=== PATIENT | female | born 1945 | race Caucasian/White ===

== ENCOUNTER 2018-12-09 10:58 | Observation (INO) | payer OTHER ==
[2018-12-09] MEDS ORDERED: NS 1,000 ML IV ONE (11:00)
[2018-12-09 11:39] LABS: PLATELET COUNT 274 10^3/uL (150-400)
[2018-12-09] MEDS ORDERED: DEXAMETHASONE 4 MG/ML VIAL ONE (11:46)
[2018-12-09] MEDS ORDERED: PROPOFOL 200 MG/20 ML VIAL ONE (11:46)
[2018-12-09] MEDS ORDERED: ROCURONIUM 50 MG/5 ML VIAL ONE ×2 (11:46→14:25)
[2018-12-09] MEDS ORDERED: LIDOCAINE 1% 300 MG/30 ML SDV ONE (11:49)
[2018-12-09] MEDS ORDERED: HEPARIN/DEXTROSE 25,000 UNIT/500 ML BAG ONE (11:49)
[2018-12-09] MEDS ORDERED: HEPARIN 10,000 UNIT/10 ML MDV (1,000 UNIT/ML) ONE (11:50)
[2018-12-09] MEDS ORDERED: IOPAMIDOL (ISOVUE-300) 100 ML BTL ONE (11:50)
[2018-12-09] MEDS ORDERED: BUPIVACAINE 0.5% 30 ML SDV ONE (11:50)
[2018-12-09 11:51] LABS: INR 3.46 (0.83-1.16)
--- NOTE | 2018-12-09 12:02 | PDANEPAE ---
ANE History of Present Illness EP studies and ablation. ANE Past Medical History - Cardiovascular History Hx Hypertension: Yes Hx Arrhythmias: Yes Hx Coronary Artery / Peripheral Vascular Disease: Yes Hx CHF / Valvular Disease: Yes Hx Palpitations: Yes Cardiovascular History Comment: HPL, hx of mitral stenosis s/p MVR,. Atrial fibrillation,flutter. chronic bilateral LE edema - Pulmonary History Hx COPD: No Hx Asthma/Reactive Airway Disease: Yes Hx Recent Upper Respiratory Infection: No Hx Oxygen in Use at Home: No Hx Sleep Apnea: No - Neurologic History Hx Cerebrovascular Accident: Yes Hx Seizures: No Hx Dementia: No Neurologic History Comment: Hx of TIA in late - Endocrine History Hx Diabetes: No Hypothyroid: Yes Hyperthyroid: No Obesity: mild - Renal History Hx Renal Disorders: No - Liver History Hx Hepatic Disorders: No - Neurological & Psychiatric Hx Hx Neurological and Psychiatric Disorders: No - Cancer History Hx Cancer: No - Congenital Disorder History Hx Congenital Disorders: No - GI History GERD: no Hx Gastrointestinal Disorders: No - Chronic Pain History Chronic Pain: No - Surgical History Prior Surgeries: s/p MVR, ablation, appendectomy, NURIA, shoulder, knee, hernia repair. cataracts, vitrectomy, bunionectomy ANE Review of Systems Review of Systems: - Exercise capacity METS (RN): 4 METS ANE Patient History - Allergies Allergies/Adverse Reactions: ciprofloxacin [From Cipro] Allergy (Verified 12/04/18 14:19) Headache fenofibrate [From Tricor] Allergy (Verified 12/04/18 14:21) Psychtropic effect fentanyl Allergy (Verified 12/04/18 14:19) Other-Enter Comments hydromorphone [From Dilaudid] Allergy (Verified 12/04/18 14:19) Other-Enter Comments meperidine [From Demerol] Allergy (Verified 12/04/18 14:21) Psychotropic effect oxaprozin [From Daypro] Allergy (Verified 12/04/18 14:19) Headache/Itch tolmetin [From Tolectin] Allergy (Verified 12/04/18 14:19) Headache/Itch - Home Medications Home Medications: Albuterol [Proventil Inhaler HFA (*)] 1 - 2 puffs IH Q4H PRN 12/04/18 [Last Taken Unknown] Aspirin [Aspirin 81mg (*)] 81 mg PO DAILY 12/04/18 [Last Taken 12/08/18] Cholecalciferol Vit D3 [Vitamin D3 (*)] 1,000 units PO DAILY 12/04/18 [Last Taken 12/08/18] Dofetilide [Tikosyn 0.5 MG (*)] 0.5 mg PO BID@00,12 12/04/18 [Last Taken ] Ergocalciferol [Vitamin D2 (*)] 50,000 unit PO WE 12/04/18 [Last Taken 12/08/18] Estradiol [Estrace Vaginal (*)] 1 bertha VG HS 12/04/18 [Last Taken 12/08/18] Furosemide [Lasix 20 MG (*)] 20 mg PO DAILY 12/04/18 [Last Taken 12/08/18] Herbals/Supplements -Info Only 1 ea PO DAILY 12/04/18 [Last Taken 12/08/18] Levothyroxine [Synthroid 75 mcg (*)] 75 mcg PO DAILY06 12/04/18 [Last Taken ] Metoprolol Succinate Xr [Toprol Xl 25 mg (*)] 25 mg PO DAILY 12/04/18 [Last Taken 12/08/18] Beaver-3 Fatty Acids [Fish Oil 1000 mg (*)] 1,000 mg PO HS 12/04/18 [Last Taken 12/08/18] Propylene Glycol/Peg 400/Pf [Systane 0.3-0.4% Eye Drops] 1 each OP Q4-6PRN PRN 12/04/18 [Last Taken 12/08/18] Somatropin [Genotropin] 0.4 mg SQ HS 12/04/18 [Last Taken 12/08/18] Sumatriptan Succinate [Imitrex] 100 mg PO DAILY PRN 12/04/18 [Last Taken Unknown ] Warfarin Sodium [Coumadin 7.5MG (*)] 7.5 mg PO HS 12/04/18 [Last Taken 12/08/18] - Anes Hx Anes Hx: no prior problems - Smoking Hx Smoking Status: Former smoker - Alcohol Use Alcohol Use: Rarely - Family Anes Hx Family Anes Hx: none ANE Labs/Vital Signs - Labs Result Diagrams: 12/09/18 11:20 12/09/18 11:20 - Vital Signs Blood Pressure: 132/65 Heart Rate: 64 O2 Sat (%): 96 Height: 162.56 cm Weight: 74.389 kg ANE Physical Exam - Airway Neck exam: FROM Mallampati Score: Class 1 Mouth exam: normal dental/mouth exam (front upper and lower crowns) - Pulmonary Pulmonary: clear to auscultation - Cardiovascular Cardiovascular: regular rate and rhythym - ASA Status ASA Status: II ANE Anesthesia Plan Anesthesia Plan: general endotracheal anesthesia
[2018-12-09] MEDS ORDERED: ALBUTEROL 3 ML DEYVIAL IH ONE (12:18)
[2018-12-09] MEDS ORDERED: ALBUTEROL 3 ML DEYVIAL ONE (12:21)
--- NOTE | 2018-12-09 12:22 | PDGENHP ---
History & Physical Chief Complaint: symptomatic atrial fibrillation History of Present Illness: Symptomatic AF, refractory to tikosyn. History of mechanical MVR, on coumadin. Prior CTI ablation. Relevant Physical Exam: A+Ox4, RR/NR, crisp mechanical click, no focal deficits Cardiorespiratory Assessment: AF -> GETA/JUAN ALBERTO/EPS/ablation
[2018-12-09] MEDS ORDERED: MIDAZOLAM 2 MG/2 ML VIAL ONE (12:36)
--- NOTE | 2018-12-09 12:36 | PDANEPAE ---
ANE Past Medical History - Pulmonary History Hx Sleep Apnea: No ANE Review of Systems Review of Systems: ANE Patient History - Allergies Allergies/Adverse Reactions: ciprofloxacin [From Cipro] Allergy (Verified 12/04/18 14:19) Headache fenofibrate [From Tricor] Allergy (Verified 12/04/18 14:21) Psychtropic effect fentanyl Allergy (Verified 12/04/18 14:19) Other-Enter Comments hydromorphone [From Dilaudid] Allergy (Verified 12/04/18 14:19) Other-Enter Comments meperidine [From Demerol] Allergy (Verified 12/04/18 14:21) Psychotropic effect oxaprozin [From Daypro] Allergy (Verified 12/04/18 14:19) Headache/Itch tolmetin [From Tolectin] Allergy (Verified 12/04/18 14:19) Headache/Itch - Home Medications Home Medications: Albuterol [Proventil Inhaler HFA (*)] 1 - 2 puffs IH Q4H PRN 12/04/18 [Last Taken Unknown] Aspirin [Aspirin 81mg (*)] 81 mg PO DAILY 12/04/18 [Last Taken 12/08/18] Cholecalciferol Vit D3 [Vitamin D3 (*)] 1,000 units PO DAILY 12/04/18 [Last Taken 12/08/18] Dofetilide [Tikosyn 0.5 MG (*)] 0.5 mg PO BID@00,12 12/04/18 [Last Taken ] Ergocalciferol [Vitamin D2 (*)] 50,000 unit PO WE 12/04/18 [Last Taken 12/08/18] Estradiol [Estrace Vaginal (*)] 1 bertha VG HS 12/04/18 [Last Taken 12/08/18] Furosemide [Lasix 20 MG (*)] 20 mg PO DAILY 12/04/18 [Last Taken 12/08/18] Herbals/Supplements -Info Only 1 ea PO DAILY 12/04/18 [Last Taken 12/08/18] Levothyroxine [Synthroid 75 mcg (*)] 75 mcg PO DAILY06 12/04/18 [Last Taken ] Metoprolol Succinate Xr [Toprol Xl 25 mg (*)] 25 mg PO DAILY 12/04/18 [Last Taken 12/08/18] Kindred-3 Fatty Acids [Fish Oil 1000 mg (*)] 1,000 mg PO HS 12/04/18 [Last Taken 12/08/18] Propylene Glycol/Peg 400/Pf [Systane 0.3-0.4% Eye Drops] 1 each OP Q4-6PRN PRN 12/04/18 [Last Taken 12/08/18] Somatropin [Genotropin] 0.4 mg SQ HS 12/04/18 [Last Taken 12/08/18] Sumatriptan Succinate [Imitrex] 100 mg PO DAILY PRN 12/04/18 [Last Taken Unknown ] Warfarin Sodium [Coumadin 7.5MG (*)] 7.5 mg PO HS 12/04/18 [Last Taken 12/08/18] - Smoking Hx Smoking Status: Former smoker ANE Labs/Vital Signs - Labs Result Diagrams: 12/09/18 11:20 12/09/18 11:20 - Vital Signs Height: 162.56 cm Weight: 74.389 kg
[2018-12-09] MEDS ORDERED: PHENYLEPHRINE HCL 100 MCG/ML SYR ONE ×2 (12:57→15:36)
[2018-12-09] MEDS ORDERED: ceFAZolin 1 GM VIAL ONE ×2 (12:59)
[2018-12-09] MEDS ORDERED: PROTAMINE SULFATE 50 MG/5 ML VIAL IVP ONE (14:03)
[2018-12-09] MEDS ORDERED: ADENOSINE 6 MG/2 ML VIAL ONE (15:12)
[2018-12-09] MEDS ORDERED: SUGAMMADEX SODIUM 200 MG/2 ML VIAL IVP ONE (15:44)
[2018-12-09] MEDS ORDERED: ACETAMINOPHEN 325 MG TAB PO PRN (16:11)
[2018-12-09] MEDS ORDERED: NALOXONE HCL 0.4 MG/ML INJ IVP PRN (16:12)
[2018-12-09] MEDS ORDERED: ALBUTEROL 60 PUFFS/8 GM MDI IH PRN (16:13)
--- NOTE | 2018-12-09 16:13 | POSTANESTH ---
Post Anesthetic Evaluation Cardiovascular Status: Similar to Pre-Op Cond Respiratory Status: Similar to Pre-op Cond. Level of Consciousness/Mental Status: Can Participate in Eval Pain Control: Adequate, Prn Tx Ordered Nausea/Vomiting Control: Adequate, Prn Tx Ordered Complications Possibly Related to Anesthesia: None Noted
--- NOTE | 2018-12-09 16:24 | EPPROC ---
Electrophysiology Procedure Note: Date: 12/09/2018 Floor Molder: Brent Tavarez MD Procedures: Transesophageal ECHO -35166 Comprehensive EP study and catheter ablation of atrial fibrillation-936 by David Torres Intracardiac echo -18220 3D electro anatomic mapping -34410 Attempted induction of arrhythmia following drug infusion -40492 Indications: 72-year-old female with history of mechanical mitral valve replacement, with symptomatic paroxysmal atrial fibrillation refractory to the use of dofetilide. She has undergone prior ablation of the caval tricuspid isthmus. Techniques: Following informed consent, the patient was brought to the EP lab in a fasting nonsedated state, in sinus rhythm. Preprocedure INR was 3.4. General anesthesia was provided by the anesthesiology service. IV antibiotics were administered prior to procedure. Preprocedure transesophageal ECHO demonstrated the absence of left atrial appendage thrombus; mechanical mitral valve function was normal; see formal report for full details. Bilateral groins were prepped and draped in usual sterile fashion. An esophageal temperature probe was inserted. Under ultrasound guidance, vascular access was obtained in the right femoral vein x3 (2 8 Micronesian sheaths and 1 SL 0 sheath) and in the right femoral artery x1 (4 Micronesian sheath). Weight based heparin bolus and drip were administered, targeting ACT 300-350 seconds. The SL 0 sheath was connected to continuous saline irrigation. A Sound Star intracardiac echo catheter was inserted, and advanced to the right atrium. Carto sound map was created of the CS ostium, left atrial appendage, pulmonary veins, left atrium, esophagus, mechanical mitral valve. A [employer] transseptal needle was inserted in the SL 0 sheath, and the system was positioned at the fossa ovalis under fluoro and ice guidance; the fossa was crossed, and the SL 0 sheath was advanced to the mid LA. A decapolar catheter was advanced to the coronary sinus. A PentaRay multipolar catheter was inserted in the transseptal sheath, and used to create a CARTO substrate map of the left atrium. Care was taken to avoid the mechanical mitral valve. The PentaRay was been replaced with a Smart Touch SF ablation catheter. RF ablation was performed at 40 w power along the posterior wall, 45-50 w power on the anterior wall and roof, using short duration lesions. Minimal temperature rise in the esophagus was observed during posterior LIPV ablation, but this was not enough to limit power delivery. The left pulmonary veins, then the right pulmonary veins, were encircled and block. Following RF ablation, the ablation catheter was replaced with the PentaRay multipolar catheter. Left atrial substrate map was repeated; entrance and exit block was confirmed in all 4 pulmonary veins using activation mapping and pacing within each vein. Adenosine 6 mg IV x2 was given (once for each set of pulmonary veins), and entrance and exit block was reconfirmed in each of the 4 pulmonary veins using activation mapping and pacing from within each vein during adenosine administration. Equipment was then withdrawn from the left atrium. The ablation catheter was placed at the cava tricuspid isthmus. Activation mapping of the lateral RA was performed during CS proximal bipole pacing; this confirmed transisthmus block across the CTI (TIT equals 147 milliseconds medial to lateral). Bidirectional block was confirmed with differential pacing from the lateral aspect of the CTI. At the completion of the procedure, ice survey showed no pericardial effusion; there was normal biventricular systolic function. All catheters were withdrawn. A temporary hemostasis suture was applied to the right femoral access site. All sheaths were aspirated and flushed, then removed; manual pressure was held until hemostasis. The patient tolerated the procedure well. EBL: 30 CC Complications: None Assessment: Successful catheter ablation of atrial fibrillation via 4 vein PVI Persistent transisthmus block across the CTI Plan: Bedrest 6 hr postprocedure Remove right groin suture following bedrest Continue Coumadin with goal INR 2.5-3.5 Pantoprazole and colchicine for 2 weeks post ablation Stop dofetilide Groin precautions for 10 days postprocedure
[2018-12-09] MEDS ORDERED: WARFARIN SODIUM 7.5 MG TAB PO SCH (21:00)
[2018-12-09] MEDS: COLCHICINE 0.6 MG CAP/TAB PO SCH (21:54)
[2018-12-10] MEDS ORDERED: LEVOTHYROXINE 75 MCG TAB PO SCH (06:00)
[2018-12-10 06:07] LABS: PROTIME(PATIENT) 36.9 SEC (12.0-15.0)
[2018-12-10 06:11] LABS: PLATELET COUNT 213 10^3/uL (150-400)
[2018-12-10 06:31] LABS: CREATINE KINASE 100 IU/L (0-156)
[2018-12-10] MEDS: COLCHICINE 0.6 MG CAP/TAB PO SCH (08:44)
[2018-12-10] MEDS ORDERED: METOPROLOL SUCCINATE XR 25 MG TAB PO SCH (09:00)
[2018-12-10] MEDS ORDERED: PANTOPRAZOLE SODIUM 40 MG TAB PO SCH (09:00)
[2018-12-10] MEDS ORDERED: ASPIRIN 81 MG CHEWABLE TAB PO SCH (09:00)
[2018-12-10] MEDS ORDERED: CHOLECALCIFEROL VIT D3 1,000 UNITS TAB PO SCH (09:00)
[2018-12-10] MEDS ORDERED: FUROSEMIDE 20 MG TAB PO SCH (09:00)
--- NOTE | 2018-12-10 09:23 | ECHO ---
[email or web address] [address] [address] Main: [phone] Echocardiography Examination Transesophageal Name: ROSALEE SEYMOUR MR#: [id number] Study Date: 12/09/2018 Study Time: 12:48 PM Date of : 1945 Age: 72 year(s) Height: ( ) Weight: ( ) BSA: Gender: Female Examination: JUAN ALBERTO Contrast: Image Quality: Adequate Rhythm: Heart Rate: BP: / Indication: EP Study Procedure Staff Referring Physician: Cut Out Worker: Steph Day [facility] Reading Physician: Nguyễn Tavarez MD Requesting Provider: Ordering Physician: Nguyễn Tavarez MD Indication: EP Study Acute complication: None Measurements AV/MV Label Value Normal Value MV VTI 46.8 cm MV PGmax 13 mmHg MV PGmean 6 mmHg Conclusions Left Ventricle: Normal global systolic left ventricular function. The EF is visually estimated to be 50 %. Left Atrium Appendage: Good color flow doppler in the left atrial appendage. Mitral Valve: There is a prosthetic mitral valve in place. Mild mitral regurgitation with multiple jets. Prosthetic mitral valve gradients are within normal limits. Mitral Valve Measurements MV PGmean is 6 mmHg. Patient: ROSALEE SEYMOUR Study Date: 12/09/2018 Page 1 of 2 12:48 PM Aorta: Mild plaque in descending aorta. Findings Left Ventricle: Normal global systolic left ventricular function. The EF is visually estimated to be 50 %. Left Atrium Appendage: Good color flow doppler in the left atrial appendage. No thrombus is identified. IAS: An agitated saline study was performed and was negative for intracardiac shunting. Mitral Valve: There is a prosthetic mitral valve in place. Mild mitral regurgitation with multiple jets. Prosthetic mitral valve gradients are within normal limits. Mitral Valve Measurements MV PGmean is 6 mmHg. Aortic Valve: Aortic leaflets are structurally normal. Trivial aortic regurgitation is present. Pulmonic Valve: Pulmonic leaflets are normal in appearance. Aorta: Mild plaque in descending aorta. Exam Details Procedure Ordered: JUAN ALBERTO Procedure Status: Routine study Image Quality: Adequate Consent: Risks, alternatives of procedure explained to patient, informed consent obtained Probe Insertion: Attending field instructor Facility Location: Bedside (No Signature Object) Patient: ROSALEE SEYMOUR Study Date: 12/09/2018 Page 2 of 2 12:48 PM [id number]
--- NOTE | 2018-12-10 10:26 | CPEKG ---
Test Reason : OPEN Blood Pressure : / mmHG Vent. Rate : 066 BPM Atrial Rate : 069 BPM P-R Int : 149 ms QRS Dur : 100 ms QT Int : 418 ms P-R-T Axes : 061 057 060 degrees QTc Int : 438 ms Sinus rhythm Confirmed by Jared Reynolds ([id number]) on 12/10/2018 10:26:22 AM Referred By: Nguyễn Tavarez Confirmed By:Jared Reynolds
--- NOTE | 2018-12-10 10:27 | CPEKG ---
Test Reason : OPEN Blood Pressure : / mmHG Vent. Rate : 063 BPM Atrial Rate : 063 BPM P-R Int : 165 ms QRS Dur : 100 ms QT Int : 448 ms P-R-T Axes : 055 074 065 degrees QTc Int : 459 ms Sinus rhythm Low voltage, extremity and precordial leads Confirmed by Jared Reynolds ([id number]) on 12/10/2018 10:27:26 AM Referred By: Nguyễn Tavarez Confirmed By:Jared Reynolds
--- NOTE | 2018-12-10 10:30 | CPEKG ---
Test Reason : OPEN Blood Pressure : / mmHG Vent. Rate : 060 BPM Atrial Rate : 060 BPM P-R Int : 159 ms QRS Dur : 099 ms QT Int : 425 ms P-R-T Axes : 061 064 053 degrees QTc Int : 425 ms Sinus rhythm Low voltage, extremity and precordial leads Confirmed by Jared Reynolds ([id number]) on 12/10/2018 10:30:04 AM Referred By: Nguyễn Tavarez Confirmed By:Jared Reynolds
[2018-12-10 11:15] VITALS: BP 130/63
--- NOTE | 2018-12-10 18:57 | ECHO ---
[email or web address] [address] [address] Main: [phone] Echocardiography Examination Transthoracic Name: ROSALEE SEYMOUR MR#: [id number] Study Date: 12/10/2018 Study Time: 09:03 AM Date of : 1945 Age: 72 year(s) Height: 162.6 cm (64 in.) Weight: 74.39 kg (164 lb.) BSA: 1.8 m2 Gender: Female Examination: Echo Contrast: Image Quality: Adequate Rhythm: Heart Rate: BP: 106 mmHg/53 mmHg Indication: F/U post EP study Procedure Staff Referring Physician: Last Cleaner: Edwige Farfan RDCS Reading Physician: Roberta Fish MD Requesting Provider: Ordering Physician: Nguyễn Tavarez MD Indication: F/U post EP study Measurements Chambers AV/MV Label Value Normal Value Label Value Normal Value LVDd, 2D 5.1 cm (3.9cm - 5.3cm) AV PGmean 4 mmHg IVSd, 2D 0.7 cm (0.6cm - 1.1cm) MV E Vmax 2.07 m/s LVPWd, 2D 0.8 cm MV A Vmax 0.68 m/s LADs, 2D 3.9 cm (2.7cm - 3.8cm) MV E/A 3.04 Additional Vessels MV E/E' lateral 31.7 Label Value Normal Value MV E/E' septal 38.6 (0.45 - 1.25) AoAsc 3.4 cm MV DT 320 ms AoRoot, MM 3.4 cm (2.2cm - 3.7cm) MV E' septal 0.05 m/s MV VTI 46.3 cm MV PGmax 16 mmHg MV PGmean 4 mmHg MV E' lateral 0.07 m/s MV E/E' mean 34.5 MV E' mean 0.06 m/s TV/PV Label Value Normal Value RA Pressure 5 mmHg RVSP 49 mmHg TR Pmax 44 mmHg Patient: ROSALEE SEYMOUR Study Date: 12/10/2018 Page 1 of 3 09:03 AM TR Vmax 3.33 m/s Conclusions 1. Normal LV size and systolic function. Normal wall motion. 2. The right ventricular size and systolic function. 3. The left atrium is moderately dilated. 4. The right atrium is mildly dilated. 5. There was a ignition mechanic mitral valve prosthesis with a mean gradient of 4 mm Hg. The prosthesis appears well seated. Mild prosthesis regurgitation. 6. [id number] tricuspid regurgitation with estimated PA pressure 49 mm of mercury. 7. Compared with JUAN ALBERTO dated 12/09/2018 overall similar findings Findings Left Ventricle: Cannot determine diastolic dysfunction.. Left ventricle is normal in size. Normal global systolic left ventricular function. EF range is estimated at 60 % - 65 %. Left ventricle wall thickness is normal. There are no regional wall motion abnormalities. Left Ventricular Measurements MV E Vmax is 2.07 m/s. IVS: The septum is intact. Right Ventricle: Normal size right ventricle. Right ventricular systolic function is normal. Left Atrium: The left atrium is moderately dilated. IAS: Normal appearing atrial septum. Right Atrium: The right atrium is mildly dilated. Mitral Valve: A mechanical prosthesis is present in the mitral valve. Mild MV prosthesis regurgitation. Mitral Valve Measurements MV PGmean is 4 mmHg. Aortic Valve: Aortic leaflets exhibit normal cuspal separation. Trivial aortic regurgitation is present. There is no aortic stenosis. Tricuspid Valve: Tricuspid valve leaflets are normal in appearance and function. Mild to moderate tricuspid regurgitation. No tricuspid valve stenosis. Right Ventricular systolic pressure is measured at 49 mmHg. Pulmonary artery pressure is mildly increased. Pulmonic Valve: Pulmonic leaflets exhibit normal cuspal separation. Trivial pulmonic valve regurgitation is present. There is no pulmonic valve stenosis. Aorta: The aorta is normal. The aortic root size in M-mode measures 3.4 cm. The ascending aorta measures 3.4 cm. Aorta Measurements AoRoot, MM is 3.4 cm. Pulmonary Artery: The pulmonary artery morphology appears normal. IVC: The inferior vena cava is normal in size and course. Pericardium: No pericardial effusion. No pleural effusion present. Patient: ROSALEE SEYMOUR Study Date: 12/10/2018 Page 2 of 3 09:03 AM Exam Details Procedure Ordered: Echo Procedure Status: Routine study Image Quality: Adequate Facility Location: Cardiac Echo 1 (No Signature Object) Patient: ROSALEE SEYMOUR Study Date: 12/10/2018 Page 3 of 3 09:03 AM [id number]
--- NOTE | 2018-12-10 19:16 | GDS ---
[f rep st] DISCHARGE SUMMARY SUPERVISING VENEER GRADER: Amadou Tavarez MD ADMISSION DIAGNOSES: 1. Paroxysmal atrial fibrillation. 2. History of mechanical mitral valve replacement. 3. Prior atrial flutter ablation of her cavotricuspid isthmus. DISCHARGE DIAGNOSIS: Atrial fibrillation, status post radiofrequency pulmonary vein isolation. PROCEDURES PERFORMED DURING HOSPITALIZATION: 1. Electrocardiogram. 2. Echocardiogram. 3. Electrophysiology study. 4. Radiofrequency pulmonary vein isolation. HOSPITAL COURSE: Patient presented 12/09/2018, for atrial fibrillation ablation in the setting of frequent and symptomatic episodes of atrial fibrillation despite medical therapy with Tikosyn. She underwent successful catheter ablation of atrial fibrillation with radiofrequency ablation of all [address] performed by [address] Tavarez. She had no intra-procedure complications and she has done very well overnight. She is stable for discharge home today. CURRENT PHYSICAL EXAMINATION: GENERAL: Alert and oriented x4 in no apparent distress. VITAL SIGNS: Blood pressure 130/63, heart rate 69, respiratory rate 20 , SpO2 95%, temp 36.4 degrees Celsius. RESPIRATORY: Lungs are clear to auscultation without adventitious breath sounds. CARDIAC: Regular rate and rhythm, mechanical mitral valve. S1, S2, rhythm is regular. ABDOMEN: Normoactive bowel sounds times all 4 quadrants. No masses or tenderness. Soft to palpation. SKIN: [place], warm, dry without cyanosis, clubbing, or peripheral edema. EXTREMITIES: Right groin stopcock suture removed intact without evidence of hematoma, redness, oozing, swelling, or warmth. Mznk-ia-aaynlsnh ecchymosis to this site. Pulses are 2+ bilaterally. No edema. LABORATORY/IMAGING: Laboratory studiesdrawn today: WBC is 10.07, CBC otherwise stable compared to preprocedure. INR 4.0. BMP stable compared to preprocedure. Troponin 0.406, please note that elevated WBCs and troponin are to be expected in the postprocedure setting. PROCEDURES: Electrophysiology study and atrial fibrillation ablation as mentioned above. Preliminary review of echocardiogram this morning demonstrates stable left ventricular systolic function without new wall motion abnormalities or evidence of pericardial effusion. Electrocardiogram this morning demonstrates normal sinus rhythm with a stable OR interval and without new ST or T-wave abnormalities. DISCHARGE DISPOSITION: Patient will be discharged home in stable condition. Activity restrictions as below. DISCHARGE MEDICATIONS: Please see discharge medication reconciliation sheet for full details. Please note that patient will take colchicine 0.3 mg daily and omeprazole daily for 6 weeks. Her Tikosyn has been discontinued at this time due to potential interaction with colchicine. She will continue her Coumadin as directed, she will hold this medication for the next 48 hours due to her elevated INR. She will repeat laboratory studies to monitor her INR on Friday, 12/14. DISCHARGE INSTRUCTIONS: Post atrial fibrillation ablation instructions were reviewed with patient in detail. 1. We discussed activity restrictions, including lifting no more than 10 pounds and avoidance of submerged bathing for 10 days. 2. She will get up and walk around every 45 minutes for 45 days. 3. She will avoid unpressurized air travel or scuba diving for the next 6 months and she will present to our clinic for an echocardiogram with a bubble study prior to engaging in either of these activities. 4. We slo reviewed bleeding precautions, medication compliance, monitoring for signs and symptoms of infection, monitoring for atrioesophageal fistula, and monitoring for sustained arrhythmias. At the time of discharge, patient verbalized understanding regarding all discharge instructions without questions or concerns. She has a followup visit scheduled with Dr. Tavarez in 4 weeks and she will contact [facility] if she has any new or concerning symptoms prior to her upcoming visit. ADDENDUM Brent Tavarez MD - patient seen and discussed with Ms Connor. Relevant portions of history/physical/ros/data review were personally performed by me. Uneventful postop observation following catheter ablation of atrial fibrillation. Echo shows no pericardial effusion this morning. INR is 4.0; we will have her hold Coumadin for 2 days, resume on postop day 3, and check INR on Friday (postop day 5). I do want her to take colchicine for prevention of pericarditis post ablation, and thus have stopped Tikosyn in order to avoid drug drug interaction. Follow-up with me in 4 weeks. Postop care otherwise as specified above. Time spent on discharge, greater than 30 minutes. /[id number]/MODL MTDD
== END 2018-12-10 13:13 | disposition home or self-care (01) ==
LOC: FCATH 10:58 → F2N 16:11 → UNDOADMOB 16:12 → F2N 16:12
PROVIDERS: ADMIT Internal Medicine Cardiovascular Disease; ATTEND Internal Medicine Cardiovascular Disease
PROC: 02H73MZ Insertion of Cardiac Lead into Left Atrium, Percutaneous Approach (ICD-10-PCS; principal; 2018-12-09)
PROC: 025T3ZZ Destruction of Left Pulmonary Vein, Percutaneous Approach (ICD-10-PCS; principal; 2018-12-09)
PROC: 4A023FZ Measurement of Cardiac Rhythm, Percutaneous Approach (ICD-10-PCS; principal; 2018-12-09)
PROC: 02K83ZZ Map Conduction Mechanism, Percutaneous Approach (ICD-10-PCS; principal; 2018-12-09)
PROC: B2161ZZ Fluoroscopy of Right and Left Heart using Low Osmolar Contrast (ICD-10-PCS; principal; 2018-12-09)
PROC: B246YZZ Ultrasonography of Right and Left Heart using Other Contrast (ICD-10-PCS; principal; 2018-12-09)
PROC: 025S3ZZ Destruction of Right Pulmonary Vein, Percutaneous Approach (ICD-10-PCS; principal; 2018-12-09)
PROC: 5A1213Z Performance of Cardiac Pacing, Intermittent (ICD-10-PCS; principal; 2018-12-09)
DX: I48.0 Paroxysmal atrial fibrillation (principal); I10 Essential (primary) hypertension; E78.5 Hyperlipidemia, unspecified; Z95.2 Presence of prosthetic heart valve; Z95.1 Presence of aortocoronary bypass graft; Z86.73 Personal history of transient ischemic attack (TIA), and cerebral infarction without residual deficits
CPT/HCPCS: 93005; 93306; 93312; 93613; 93623; 93656; 93662; C1893; G0378; C1730; C1732; C1759; J0153; J0690; J1100; J1644; J2250; J2370; J2704; J2720; J7613; Q9967